=== PATIENT | male | born 1995 | race Caucasian/White ===

== ENCOUNTER 2017-02-12 09:36 | Emergency (ER) | payer OTHER ==
[~2017-02-12] VITALS: Ht 180.3 cm; Wt 76.2 kg
[2017-02-12 09:41] VITALS: TEMP 36.8; Ht 180.3 cm; Wt 76.2 kg
[2017-02-12] MEDS ORDERED: ISOT10CA3 PO (10:03)
--- NOTE | 2017-02-12 10:21 | EMERGENCY ROOM VISIT NOTE ---
History Report prepared by Donn: Naomie Parker Under the Supervision of: Dr. Gregory Pierce M.D. First contact with patient: 09:46 Chief Complaint: LACERATION/CUT (NON-SUTURE) Stated Complaint: CUT ON R LEG History of Present Illness The patient is a 21 year old male who presents to the Emergency Room with complaints of an episode of a laceration to the right lower leg occurring last night. He was going up the stairs to his apartment building and slipped on the last step, scraping his right monroy. He went to [facility] and was told to come to the ED for further evaluation. He rates his current pain as a 4/10 in severity. His tetanus is up to date. Source of History: patient Onset: last night Position: leg (right) Symptom Intensity: 4/10 Quality: other (laceration) Timing: other (episode) Review of Systems All systems have been listed, reviewed, and are negative other than those previously mentioned. Please see Additional Medical History Sheet. Past Medical & Surgical Medical Problems: (1) No significant active problems Family History Heart disease Social History Smoking Status: Never Smoker Smokeless Tobacco Use: No Alcohol Use: none Marital Status: single Housing Status: lives with family Occupation Status: unemployed Current/Historical Medications Scheduled Cephalexin Monohydrate (Keflex), 500 MG PO QID Isotretinoin (Claravis), Unknown Dose PO DAILY Allergies Coded Allergies: No Known Allergies (Unverified , 02/12/17) Physical Exam Vital Signs Date Time Temp Pulse Resp B/P (MAP) Pulse Ox O2 Delivery O2 Flow Rate FiO2 02/12/17 12:09 82 16 101/73 95 02/12/17 11:15 82 16 101/73 95 Room Air 02/12/17 09:41 36.8 87 18 132/75 93 Room Air Physical Exam GENERAL: Patient awake, alert, oriented x 3. Patient follows commands. Patient does not appear toxic. Patient is adequately hydrated and well- nourished. SKIN: No erythema, pallor, cyanosis or rash HEENT: Normal head, pupils equal, reactive to light and accommodation. Ears normal. Oral cavity and posterior pharynx appear normal. Neck: Without adenopathy, no neck vein distention. EXTREMITIES: Blunt injury to the right lower leg 2.5 cm in diameter, some blackened skin at the proximal end of the laceration. NEUROLOGIC: Cranial nerves II-XII within normal limits. No gross motor sensory function deficits. Medical Decision & Procedures ER Provider Diagnostic Interpretation: Radiology results as stated below per my review and radiologist interpretation: RIGHT TIBIA/FIBULA 2 VIEWS ROUTINE CLINICAL HISTORY: laceration Right trauma COMPARISON: None. DISCUSSION: The bones and joint spaces appear intact. There is no evidence of fracture, dislocation or bony disease. Moderate pretibial soft tissue edema IMPRESSION: No acute process. Soft tissue edema. The above report was generated using voice recognition software. It may contain grammatical, syntax or spelling errors. Electronically signed by: Bashir Antunez M.D. 02/12/2017 10:24 AM Dictated Date/Time: 02/12/2017 10:23 AM ED Course 0946: Past medical records reviewed. The patient was evaluated in room C4. A complete history and physical examination was performed. 1044: Lidocaine HCl 1130: Steven Lopez PA-C performed a laceration repair. Please see his note for further details. The patient was updated on his results and treatment plan. He was discharged home. Medical Decision Differential diagnoses includes laceration, fracture, foreign body. Imaging was obtained. Please see above. The wound was irrigated and sutured. The patient's tetanus status is up-to-date. Wound care structures were given. The patient was started on prophylactic antibiotics due to questionable involvement of underlying bone. Medication Reconcilliation Current Medication List: was personally reviewed by me Blood Pressure Screening Patient's blood pressure: Normal blood pressure Impression Primary Impression: Laceration of right lower leg Scribe Attestation The scribe's documentation has been prepared under my direction and personally reviewed by me in its entirety. I confirm that the note above accurately reflects all work, treatment, procedures, and medical decision making performed by me. Departure Information Dispostion Home / Self-Care Prescriptions Cephalexin Monohydrate (Keflex) 500 Mg Cap 500 MG PO QID, #20 CAP Prov: Steven Lopez,P.A. 02/12/17 Forms HOME CARE DOCUMENTATION FORM, IMPORTANT VISIT INFORMATION, WORK / SCHOOL INSTRUCTIONS Patient Instructions [facility] Additional Instructions Cleanse the wound daily with soap and water Avoid swimming or soaking for 2 weeks you may shower and wash your hands Tylenol and Motrin every 6 hours as needed for discomfort Sutures out in 12 days Return to the ED for any acute changes or signs of infection Keflex 1 pill 4 times a day 5 days Problem Qualifiers Primary Impression: Laceration of right lower leg Encounter type: initial encounter Qualified Codes: S81.811A - Laceration without foreign body, right lower leg, initial encounter
--- NOTE | 2017-02-12 10:25 | DIAGNOSTIC IMAGING REPORT ---
RIGHT TIBIA/FIBULA 2 VIEWS ROUTINE CLINICAL HISTORY: laceration Right trauma COMPARISON: None. DISCUSSION: The bones and joint spaces appear intact. There is no evidence of fracture, dislocation or bony disease. Moderate pretibial soft tissue edema IMPRESSION: No acute process. Soft tissue edema. The above report was generated using voice recognition software. It may contain grammatical, syntax or spelling errors. Electronically signed by: Bashir Antunez M.D. 02/12/2017 10:24 AM Dictated Date/Time: 02/12/2017 10:23 AM
[2017-02-12] MEDS ORDERED: XYLOCAINE 1%/SOD BICARB 20 ML VIAL INFIL ONE (10:44)
[2017-02-12] MEDS ORDERED: CEPH500C PO (12:03)
[2017-02-12 12:09] VITALS: BP 101/73; PULSE 82; O2SAT 95
--- NOTE | 2017-02-12 12:48 | EMERGENCY ROOM VISIT NOTE ---
ED Visit Note I was asked to suture this patient's wound by Dr. Pierce. Please see his dictation for full history and physical. Informed oral consent was obtained from the patient. Right monroy was prepped with Betadine and draped with a sterile towel. He has a 3 cm V-shaped laceration present on the anterior monroy. Wound was anesthetized using 10 ml1% buffered lidocaine in a direct infiltration. A thorough inspection was performed. Wound was irrigated copiously using Betadine diluted with normal sterile saline under jet spray lavage. There was no additional foreign material visible in the wound. Periosteum was exposed and violated. No foreign material was visible in the wound. It was then closed using 4-0 nylon in a simple interrupted fashion. Excellent wound edge approximation was achieved. Hemostasis was achieved. Wound care precautions were reviewed. Wound care handout was provided. Sutures out in 12 days. He may shower. Avoid prolonged soaking or swimming for 2 weeks. Cleanse daily with soap and water and reapply a small amount of bacitracin or Neosporin. Prescription was provided for Keflex 500 mg 4 times a day 5 days as a prophylaxis against infection due to periosteal violation. Tylenol and Motrin every 6 hours as needed for discomfort. Problem List Medical Problems: (1) No significant active problems Status: Chronic Current/Historical Medications Scheduled Cephalexin Monohydrate (Keflex), 500 MG PO QID Isotretinoin (Claravis), Unknown Dose PO DAILY Allergies Coded Allergies: No Known Allergies (Unverified , 02/12/17) Vital Signs Date Time Temp Pulse Resp B/P (MAP) Pulse Ox O2 Delivery O2 Flow Rate FiO2 02/12/17 12:09 82 16 101/73 95 02/12/17 11:15 82 16 101/73 95 Room Air 02/12/17 09:41 36.8 87 18 132/75 93 Room Air Departure Information Impression Primary Impression: Laceration of right lower leg Dispostion Home / Self-Care Prescriptions Cephalexin Monohydrate (Keflex) 500 Mg Cap 500 MG PO QID, #20 CAP Prov: Steven Lopez,P.A. 02/12/17 Forms WORK / SCHOOL INSTRUCTIONS, HOME CARE DOCUMENTATION FORM, Days to leave dressing on: 1 Clean wound with;: soap and water Number of times/day to clean wound: 2 IMPORTANT VISIT INFORMATION Patient Instructions [facility] Additional Instructions Cleanse the wound daily with soap and water Avoid swimming or soaking for 2 weeks you may shower and wash your hands Tylenol and Motrin every 6 hours as needed for discomfort Sutures out in 12 days Return to the ED for any acute changes or signs of infection Keflex 1 pill 4 times a day 5 days
== END 2017-02-12 12:09 | disposition home or self-care (01) ==
LOC: C.EDB 09:38 → C.EDC 12:09
DX: S81.811A Laceration without foreign body, right lower leg, initial encounter (principal); W22.8XXA Striking against or struck by other objects, initial encounter; Y92.039 Unspecified place in apartment as the place of occurrence of the external cause